=== PATIENT | male | born 1955 | race Caucasian/White ===

== ENCOUNTER → 2020-07-23 | Outpatient (CLI) | payer BC ==
[2020-07-23 12:14] LABS: Potassium 4.4 mmol/L (3.5-5.1)
[2020-07-23 12:46] LABS: HCT 46.9 % (39.0-53.0); HGB 15.8 gm/dL (13.0-17.5); MCH 29.8 pg (25.0-35.0); MCHC 33.7 g/dL (31.0-37.0); MCV 88.4 fL (80.0-100.0); Mean Platelet Volume 6.8; Platelet Count 214 k/uL (150-450); RBC 5.31 m/uL (4.30-5.90); RDW 13.2 % (11.5-15.5); WBC 5.3 k/uL (3.8-10.6)
[2020-07-23 13:24] LABS: Monocytes # (M) 0.32 k/uL (0-1.0); Neutrophils # (M) 3.29 k/uL (1.3-7.7); Neutrophils % (M) 62 %; Nucleated Red Blood Cells 0 /100 WBC (0-0); Total Cells Counted 100
[2020-07-23 13:25] LABS: Anisocytosis (M) Present; Poikilocytosis (M) Present
== END | disposition home or self-care (01) ==
LOC: LABPAT 10:08
PROVIDERS: ATTEND Orthopaedic Surgery
DX: Z01.818 Encounter for other preprocedural examination (principal); M23.91 Unspecified internal derangement of right knee
CPT/HCPCS: 36415; 80051; 85025; 93005

== ENCOUNTER 2020-08-02 06:17 | Day surgery (SDC) | payer BC ==
[2020-07-31 15:01] VITALS: BMI 28.0
--- NOTE | 2020-08-01 09:17 | HP ---
HISTORY AND PHYSICAL CHIEF COMPLAINT: Right knee pain. HISTORY OF PRESENT ILLNESS: The patient is a 64-year-old retired male who presents with right knee pain that began after a previous twisting injury. He notes intermittent pain along with locking and swelling. He notes it bothers him more with weightbearing activities and twisting. He rates it 8/10. He has tried a period of rest in addition to home exercise without much relief. He is unable to have an MRI secondary to previous cochlear implant. PAST MEDICAL HISTORY: Significant for hypercholesterolemia. PAST SURGICAL HISTORY: Significant for cochlear implant placement. CURRENT MEDICATIONS: Cholesterol medicines. ALLERGIES: He denies drug allergies. FAMILY HISTORY: Significant for heart disease. SOCIAL HISTORY: Negative for current tobacco or alcohol use. REVIEW OF SYSTEMS: Sixteen-point review of systems otherwise reviewed and is noncontributory. PHYSICAL EXAMINATION: On examination, the patient is approximately 5 feet 9 inches, 190 pounds of mesomorphic habitus. HEENT exam is nonfocal. Neck is supple. He has painless passive motion of the right hip. Straight leg raise is negative. Active motion right knee -6 to 125 degrees of flexion. He has a trace effusion. He is tender about the medial joint line. Collaterals are stable, Joel is negative, Javi's elicits medial pain. His distal neurovascular exam appears intact in the right lower extremity. IMPRESSION: Right knee internal derangement with probable medial meniscal tear. RECOMMENDATIONS: I talked to the patient at length regarding his condition and treatment options. At this point, he is having significant pain and mechanical symptoms that limit him after a previous twisting injury. After thorough discussion, he opts to proceed with surgery. We will plan to proceed with arthroscopic evaluation with probable partial medial meniscectomy of the right knee. We will likely perform that as an outpatient procedure. Risks and benefits were discussed at length in layman's terms. MMODL / IJN: [id number] /
[~2020-08-02 06:17] MED LIST: DEXAMETHASONE SOD PHOSPHATE 4 MG/ML 1 ML VIAL IV ONE; HYDROmorphone 0.5 MG/0.5 ML SYRINGE IVP PRN; LACTATED RINGERS 1,000 ML IV SCH; LIDOCAINE 1% (10MG/ML) FOR IV START INTRADERMA PRN; MIDAZOLAM 2 MG/2 ML VIAL IV PRN; ONDANSETRON 4 MG/2 ML VIAL IVP ONE
[2020-08-02] MEDS ORDERED: MIDAZOLAM 2 MG/2 ML VIAL ONE (07:28)
[2020-08-02] MEDS ORDERED: LIDOCAINE 1% INJ 10MG/ML (20 ML MDV) ONE (07:28)
[2020-08-02] MEDS ORDERED: fentaNYL (PF) 50 MCG/ML 2 ML AMP ONE (07:28)
[2020-08-02] MEDS ORDERED: KETOROLAC 15 MG/ML 1 ML VIAL ONE (07:28)
[2020-08-02] MEDS ORDERED: PROPOFOL 10 MG/ML 20 ML VIAL IV ONE (07:28)
[2020-08-02 08:24] VITALS: TEMP 97.2
--- NOTE | 2020-08-02 08:26 | P.OP ---
Date of Procedure: 08/02/20 Preoperative Diagnosis: Right knee internal derangement Postoperative Diagnosis: Right knee posterior medial meniscal tear/middle one third lateral meniscal tear Procedure(s) Performed: Right knee arthroscopic partial medial meniscectomy/partial lateral me niscectomy/medial femoral chondrectomy Anesthesia: ALLAN Surgeon: Calixto Salas Estimated Blood Loss (ml): 10 Pathology: none sent Condition: stable Disposition: PACU Indications for Procedure: The patient is a 64-year-old male who presents after an injury with progressive/persistent right knee pain and mechanical symptoms despite conservative treatment. He was unable to obtain an MRI because of a cochlear implant. A discussion of the risks and benefits of operative intervention versus continued conservative measures was made with patient. He opted to proceed with surgery. Operative risks to include infection, neurovascular injury, development of blood clots, possible incomplete resolution of symptoms, possible worsening symptoms and need for subsequent procedures was discussed. Informed consent was obtained. Operative Findings: As below Description of Procedure: The patient was brought to the operating room, and after induction of general anesthesia examined the right knee. Collaterals were stable, Joel was negative, and posterior drawer was negative. The right lower extremity was prepped and draped in a normal fashion. A superior lateral portal was made through a 3 mm skin incision superior and lateral to the patella. This was used for outflow. A lateral portal was made through a 5 mm vertical skin incision lateral to the patella tendon above the joint line. Diagnostic arthroscopy was performed. On inspection of the medial compartment, and oblique tear involving the posterior horn medial meniscus was noted in the white-junction. This was debrided back to stable base with straight baskets and a motorized shaver. There was a grade 2-3 chondral injury involving the central posterior portion of the medial femoral condyle. There was a loose chondral that was debrided back to a stable base with a motorized shaver. On inspection of the notch the anterior cruciate ligament appeared to be intact. On inspection of the lateral compartment, there was a radial tear involving the middle one third of the lateral meniscus in the white-white junction. This was debrided back to stable base with a motorized shaver. On inspection of the patellofemoral articulation there was some chondral fibrillation however no loose chondral fragments. The gutters were clear debris. The knee was then thoroughly irrigated. The portals were closed with Steri-Strips. A sterile dressing was applied in addition to a compression stocking. The patient was awoken from general anesthesia and transferred to recovery room in good condition. Blood loss was estimated at 10 mL. No complications were incurred.
[2020-08-02 08:33] VITALS: RESP 16
[2020-08-02] MEDS ORDERED: HYDROmorphone 0.5 MG/0.5 ML SYRINGE IVP ONE (08:46)
[2020-08-02] MEDS ORDERED: LACTATED RINGERS 1,000 ML IV ONE (09:05)
[2020-08-02] MEDS ORDERED: HYDROcodone/APAP 5-325MG 1 EACH TAB PO ONE (09:23)
[2020-08-02] MEDS ORDERED: HYDROcodone/APAP 5-325MG 1 EACH TAB ONE (09:23)
[2020-08-02 09:29] VITALS: PULSE 55
[2020-08-02 09:53] VITALS: BP 136/78
== END 2020-08-02 10:21 | disposition home or self-care (01) ==
LOC: OR 06:17
PROVIDERS: ATTEND Orthopaedic Surgery
DX: S83.281A Other tear of lateral meniscus, current injury, right knee, initial encounter (principal); S83.241A Other tear of medial meniscus, current injury, right knee, initial encounter; M23.41 Loose body in knee, right knee; X50.1XXA Overexertion from prolonged static or awkward postures, initial encounter; E78.00 Pure hypercholesterolemia, unspecified; E78.5 Hyperlipidemia, unspecified; Z82.49 Family history of ischemic heart disease and other diseases of the circulatory system; Z98.890 Other specified postprocedural states; Z79.899 Other long term (current) drug therapy
CPT/HCPCS: 29880; J2250; J1100; J0690; J2405; J2001; J3010; J1885; J2704; J1170

== ENCOUNTER 2022-10-30 00:14 | Inpatient (IN) | payer BC, MEDICARE ==
[2022-10-30] MEDS ORDERED: SODIUM CHLORIDE 0.9% 1,000 ML IV STA ×2 (00:25→02:46)
[2022-10-30] MEDS ORDERED: ONDANSETRON 4 MG/2 ML VIAL IVP STA (00:34)
[2022-10-30] MEDS ORDERED: MORPHINE SULFATE 4 MG/ML SYRINGE IVP STA ×2 (00:34→03:07)
[2022-10-30] MEDS ORDERED: PANTOPRAZOLE 40 MG/10 ML VIAL IVP STA (00:34)
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
--- NOTE | 2022-10-30 01:34 | XR ---
EXAM: XR Chest, 1 View CLINICAL HISTORY: ITS.REASON XR Reason: abdominal pain TECHNIQUE: Frontal view of the chest. AP upright portable view COMPARISON: No relevant prior studies available. FINDINGS: Lungs: Low lung volumes. Lungs appear clear. Pleural space: Unremarkable. No pneumothorax. Heart: Unremarkable. No cardiomegaly. Mediastinum: Unremarkable. Bones/joints: Unremarkable. IMPRESSION: Low lung volumes. No acute findings in the chest.
--- NOTE | 2022-10-30 01:36 | US ---
EXAM: US Abdomen Limited, Gallbladder CLINICAL HISTORY: ITS.REASON US Reason: abd pain TECHNIQUE: Real-time ultrasound of the right upper quadrant with image documentation. COMPARISON: No relevant prior studies available. FINDINGS: Gallbladder: Negative sonographic Renae sign. No gallstones. No gallbladder wall thickening or pericholecystic fluid. Common bile duct: CBD not well visualized, possibly 3.8 mm. No biliary dilation. Pancreas: Pancreas obscured by bowel gas. Right kidney: 9 x 10 x 8 mm right renal calculus in the inferior pole. No hydronephrosis. IMPRESSION: 9 x 10 x 8 mm right renal calculus in the inferior pole. No hydronephrosis.
[2022-10-30 01:39] LABS: ALT 59 U/L (4-49); AST 47 U/L (17-59); African American GFR (CKD) >90 (>60 ml/min/1.73 sqM); Albumin 4.6 g/dL (3.5-5.0); Alkaline Phosphatase 79 U/L (38-126); Amylase 75 U/L (30-110); Anion Gap 14 mmol/L; Blood Urea Nitrogen 20 mg/dL (9-20); Calcium 9.4 mg/dL (8.4-10.2); Carbon Dioxide 24 mmol/L (22-30); Chloride 101 mmol/L (98-107); Glucose 140 mg/dL (74-99); Lipase 47 U/L (23-300); Non-African American GFR(CKD) 89 (>60 ml/min/1.73 sqM); Partial Thromboplastin Time 23.3 sec (22.0-30.0); Potassium 4.3 mmol/L (3.5-5.1); Prothrombin Time 10.5 sec (9.0-12.0); Sodium 139 mmol/L (137-145); Total Bilirubin 0.7 mg/dL (0.2-1.3); Total Protein 7.3 g/dL (6.3-8.2)
[2022-10-30] MEDS ORDERED: MAG HYDROX/AL HYDROX/SIMETH 30 ML, HYOSCYAMINE ELIXIR 10 ML, LIDOCAINE 2% GLYDO JELLY 1... PO STA ×3 (01:52)
[2022-10-30 02:10] LABS: HCT 44.6 % (39.0-53.0); HGB 15.3 gm/dL (13.0-17.5); MCH 29.2 pg (25.0-35.0); MCHC 34.3 g/dL (31.0-37.0); MCV 85.1 fL (80.0-100.0); Mean Platelet Volume 7.7; Platelet Count 212 k/uL (150-450); RBC 5.25 m/uL (4.30-5.90); RDW 13.5 % (11.5-15.5); WBC 6.3 k/uL (3.8-10.6)
--- NOTE | 2022-10-30 02:35 | CT ---
EXAM: CT Abdomen and Pelvis With Intravenous Contrast CLINICAL HISTORY: ITS.REASON CT Reason: abd pain, nausea and vomiting TECHNIQUE: Axial computed tomography images of the abdomen and pelvis with intravenous contrast. CTDI is 22 mGy and DLP is 1291.1 mGy-cm. This CT exam was performed using one or more of the following dose reduction techniques: automated exposure control, adjustment of the mA and/or kV according to patient size, and/or use of iterative reconstruction technique. COMPARISON: No relevant prior studies available. FINDINGS: Lung bases: Mild bibasilar atelectasis. Mediastinum: Small hiatal hernia with fluid. ABDOMEN: Liver: Unremarkable. No mass. Gallbladder and bile ducts: Unremarkable. No calcified stones. No ductal dilation. Pancreas: Unremarkable. No mass. No ductal dilation. Spleen: Unremarkable. No splenomegaly. Adrenals: Unremarkable. No mass. Kidneys and ureters: Nonobstructing right renal calculus. No hydronephrosis or obstructing calculus. Mild nonspecific perinephric stranding. Stomach and bowel: Multiple dilated small bowel loops with air-fluid levels in the mid abdomen. Distal loops and colon are small caliber. Consistent with small bowel obstruction. Transition point may be in the left upper abdomen where there is fecalization of contents within dilated loops. Also mild mesenteric edema and fluid associated with these loops. Ischemic component not excluded. Distended stomach with fluid and heterogeneous contents. PELVIS: Appendix: No findings to suggest acute appendicitis. Bladder: Unremarkable. No mass. Reproductive: Unremarkable as visualized. ABDOMEN and PELVIS: Intraperitoneal space: Unremarkable. No free air. No significant fluid collection. Bones/joints: No acute fracture. No dislocation. Degenerative changes of the spine. Soft tissues: Unremarkable. Vasculature: Unremarkable. No abdominal aortic aneurysm. Lymph nodes: Unremarkable. No enlarged lymph nodes. IMPRESSION: 1. Small bowel obstruction. Transition point may be in the left upper abdomen. Mild mesenteric edema and fluid associated with these loops in the left upper abdomen. Ischemic component not excluded. 2. Distended stomach with fluid and heterogeneous contents. Small hiatal hernia with fluid. 3. Nonobstructing right renal calculus. <MYCVCSECTION> Communications: 10/30/22 02:39 Verify Receipt Verified receipt with on 10/30 02:38 (-04:00)
[2022-10-30] MEDS ORDERED: LORazepam 2 MG/ML INJ IV STA (02:49)
[2022-10-30 03:06] LABS: Appearance,Urine Clear (Clear); Bilirubin,Urine Negative (Negative); Blood,Urine Negative (Negative); Color,Urine Yellow; Glucose,Urine (UA) Negative (Negative); Ketones,Urine Negative (Negative); Leukocyte Esterase,Urine Negative (Negative); Mucus,Urine Rare /hpf; Nitrite,Urine Negative (Negative); PH, Urine 6.5 (5.0-8.0); Protein,Urine 1+ (Negative); RBC,Urine 5 /hpf (0-5); Specific Gravity,Urine 1.044 (1.001-1.035); Squamous Epithelial Cell,Urine <1 /hpf (0-4); Urobilinogen,Urine <2.0 mg/dL (<2.0); WBC,Urine 2 /hpf (0-5)
[2022-10-30] MEDS ORDERED: METOCLOPRAMIDE 5 MG/ML 2 ML VIAL IVP STA (03:07)
[2022-10-30] MEDS: PIPERACILLIN-TAZOBACTAM 3.375 GM in SODIUM CHLORIDE 0.9% 100 ML IVPB SCH ×3 (03:25→21:11)
[2022-10-30] MEDS ORDERED: NALOXONE 0.4 MG/ML 1 ML VIAL IV PRN (03:30)
[2022-10-30] MEDS ORDERED: MORPHINE SULFATE 4 MG/ML SYRINGE IV PRN (03:30)
[2022-10-30] MEDS ORDERED: ONDANSETRON 4 MG/2 ML VIAL IVP PRN (03:30)
--- NOTE | 2022-10-30 03:43 | XR ---
EXAM: XR Chest, 1 View CLINICAL HISTORY: ITS.REASON XR Reason: ng tube placement confirmation TECHNIQUE: Frontal view of the chest. COMPARISON: XR Chest dated 10/30/22 FINDINGS: Lungs: Mild left basilar atelectasis. Pleural space: Unremarkable. No pneumothorax. Heart: Unremarkable. No cardiomegaly. Mediastinum: Unremarkable. Bones/joints: Unremarkable. Tubes, lines and devices: New NG tube with the tip in the gastric fundus. IMPRESSION: New NG tube with the tip in the gastric fundus.
[2022-10-30 03:44] LABS: Eosinophils # (M) 0.19 k/uL (0-0.7); Lymphocytes # (M) 1.45 k/uL (1.0-4.8); Monocytes # (M) 0.32 k/uL (0-1.0); Neutrophils # (M) 4.35 k/uL (1.3-7.7); Neutrophils % (M) 69 %; Nucleated Red Blood Cells 0 /100 WBC (0-0); Total Cells Counted 100
[2022-10-30] MEDS ORDERED: PANTOPRAZOLE 40 MG/10 ML VIAL IV SCH (09:00)
[2022-10-30] MEDS: ENOXAPARIN 40 MG/0.4 ML SYRINGE SQ SCH (13:08)
[2022-10-30] MEDS ORDERED: HYDROmorphone 1 MG/ML 1 ML SYRINGE IVP PRN (14:47)
[2022-10-30] MEDS ORDERED: HYDROmorphone 0.5 MG/0.5 ML SYRINGE IVP PRN (14:47)
[2022-10-30] MEDS ORDERED: ACETAMINOPHEN IV (For NPO) 1,000 MG in EMPTY BAG 1 BAG IVPB PRN (14:47)
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
[2022-10-30] MEDS ORDERED: BENZOCAINE SPRAY 1 CAN MUCOUS MEM PRN (17:27)
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
[2022-10-30] MEDS ORDERED: DEXTROSE 5%-0.45% NACL 1,000 ML with POTASSIUM CHLORIDE 20 MEQ IV SCH ×2 (18:45)
[2022-10-30] MEDS: FAMOTIDINE 20 MG/2 ML VIAL IV SCH (20:21)
[2022-10-30] MEDS: D5-0.45% NACL WITH KCL 20MEQ/L 1,000 ML IV SCH (21:11)
[2022-10-31] MEDS: D5-0.45% NACL WITH KCL 20MEQ/L 1,000 ML IV SCH ×2 (02:55→21:27)
[2022-10-31] MEDS: PIPERACILLIN-TAZOBACTAM 3.375 GM in SODIUM CHLORIDE 0.9% 100 ML IVPB SCH ×3 (03:20→19:12)
[2022-10-31 07:26] LABS: African American GFR (CKD) 90 (>60 ml/min/1.73 sqM); Anion Gap 8 mmol/L; Blood Urea Nitrogen 13 mg/dL (9-20); Calcium 8.1 mg/dL (8.4-10.2); Carbon Dioxide 26 mmol/L (22-30); Chloride 106 mmol/L (98-107); Glucose 98 mg/dL (74-99); Non-African American GFR(CKD) 78 (>60 ml/min/1.73 sqM); Sodium 140 mmol/L (137-145)
--- NOTE | 2022-10-31 09:13 | P.PN ---
Progress Note - Text Progress Note Date: 10/31/22 Patient states he had flatus overnight. On exam vital signs are stable. Abdomen soft. There is no significant tenderness. Resolving small bowel obstruction. Patient is nasogastric tube removed. He'll start a clear liquid diet.
[2022-10-31] MEDS: ENOXAPARIN 40 MG/0.4 ML SYRINGE SQ SCH (09:27)
[2022-10-31] MEDS: FAMOTIDINE 20 MG/2 ML VIAL IV SCH ×2 (09:27→21:27)
[2022-10-31 10:16] LABS: Basophils # (A) 0.02 X 10*3/uL (0.00-0.10); Basophils % (A) 0.4 %; Eosinophils # (A) 0.23 X 10*3/uL (0.04-0.35); Eosinophils % (A) 4.5 %; HCT 41.7 % (39.6-50.0); HGB 13.5 g/dL (13.0-17.0); Immature Grans, Automated 0.2 %; Lymphocytes # (A) 1.56 X 10*3/uL (0.90-5.00); Lymphocytes % (A) 30.5 %; MCHC 32.4 g/dL (32.0-37.0); MCV 89.5 fL (80.0-97.0); Mean Platelet Volume 9.4 fL (9.5-12.2); Monocytes # (A) 0.51 X 10*3/uL (0.20-1.00); NRBC Per 100 WBC 0 /100 WBCS (0.0-0.0); Neutrophils # (A) 2.78 X 10*3/uL (1.80-7.70); Neutrophils % (A) 54.4 %; Platelet Count 207 X 10*3/uL (140-440); RBC 4.66 X 10*6/uL (4.40-5.60); RDW 13.1 % (11.5-14.5); WBC 5.11 X 10*3/uL (4.50-10.00)
--- NOTE | 2022-10-31 11:11 | XR ---
EXAMINATION TYPE: XR abdomen 2V DATE OF EXAM: 10/31/2022 COMPARISON: CT 10/30/2022 INDICATION: Follow-up obstruction TECHNIQUE: Single view abdomen upright view FINDINGS: Nonspecific bowel gas pattern is present. Air is within the ascending and transverse colon region. Th ere is some nonspecific small bowel gas in the left upper quadrant. No suspicious differential air-fl uid levels are present. Nasogastric tube tip is in the left upper quadrant of the abdomen. Psoas margins are normal. No organomegaly is present. IMPRESSION: 1. Correlate for ileus. Follow-up can be performed as clinically indicated
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
[2022-11-01] MEDS: D5-0.45% NACL WITH KCL 20MEQ/L 1,000 ML IV SCH ×5 (00:09→21:44)
[2022-11-01] MEDS: PIPERACILLIN-TAZOBACTAM 3.375 GM in SODIUM CHLORIDE 0.9% 100 ML IVPB SCH ×3 (04:00→18:38)
[2022-11-01] MEDS: ENOXAPARIN 40 MG/0.4 ML SYRINGE SQ SCH (07:54)
[2022-11-01] MEDS: FAMOTIDINE 20 MG/2 ML VIAL IV SCH ×2 (07:54→20:31)
--- NOTE | 2022-11-01 12:27 | P.PN ---
Progress Note - Text Progress Note Date: 11/01/22 Patient feels better. He has been tolerating his liquid diet. On exam vital signs are stable. Abdomen is soft. Resolving small bowel obstruction. Patient will remain on full liquid diet.
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
[2022-11-01 19:34] VITALS: RESP 18
[2022-11-02] MEDS: PIPERACILLIN-TAZOBACTAM 3.375 GM in SODIUM CHLORIDE 0.9% 100 ML IVPB SCH ×2 (03:12→14:54)
[2022-11-02 05:19] LABS: African American GFR (CKD) 89 (>60 ml/min/1.73 sqM); Anion Gap 8 mmol/L; Blood Urea Nitrogen 8 mg/dL (9-20); Calcium 8.7 mg/dL (8.4-10.2); Carbon Dioxide 27 mmol/L (22-30); Chloride 105 mmol/L (98-107); Glucose 95 mg/dL (74-99); Non-African American GFR(CKD) 77 (>60 ml/min/1.73 sqM); Sodium 140 mmol/L (137-145)
[2022-11-02] MEDS: D5-0.45% NACL WITH KCL 20MEQ/L 1,000 ML IV SCH ×2 (08:51→12:02)
[2022-11-02] MEDS: ENOXAPARIN 40 MG/0.4 ML SYRINGE SQ SCH (12:06)
[2022-11-02] MEDS: FAMOTIDINE 20 MG/2 ML VIAL IV SCH (12:07)
--- NOTE | 2022-11-02 12:25 | FL ---
EXAMINATION TYPE: FL small bowel follow through DATE OF EXAM: 11/02/2022 COMPARISON: None HISTORY: Bloating, bowel obstruction history x4 days, history of diaphragm repair TECHNIQUE: No contrast Gastrografin small bowel follow-through was performed. Overhead radiographs fl uoroscopic observation and fluoroscopic imaging is performed. FINDINGS: Fluoroscopy time: 1 minute 12 seconds. Images: 9 fluoroscopic and overhead radiographs. DLP: Not recorded Small bowel fills normally with Gastrografin. Transit time: 1 hour. Small hiatal hernia is present. Fundus body and antrum of stomach is visualized is unremarkable. Prox imal small bowel loops and distal ileal fold pattern appears normal. Under real-time observation the small bowel loops appear freely mobile. Appendix is not identified. There is the terminal ileum is unremarkable. No zone of transition is identified. IMPRESSION: 1. No suspicious changes to suggest small bowel obstruction. Gastrografin extends into the colon wit hin one hour.
[2022-11-02 13:44] VITALS: BP 127/71; PULSE 64; TEMP 97.5
--- NOTE | 2022-11-02 15:16 | P.DS ---
Providers Date of admission: 10/30/22 03:31 Expected date of discharge: 11/02/22 Attending physician: Elio Vanessa Consults: 10/30/22 14:47 Consult Physician Routine Consulting Provider: Deion Peters Consult Reason/Comments: Medical management Do you want consulting provider notified?: Yes Primary care physician: Fabiola Munroe - Discharge Diagnosis(es) (1) Small bowel obstruction 67-year-old male hospitalized with abdominal pain and CAT scan findings consistent with small bowel obstruction. Patient had a nasogastric tube placed. His symptoms improved. He had return of bowel function. He was started on liquid diet which he tolerated. Today the patient had a small bowel series which shows no evidence of residual obstruction. Will advance diet and planned discharge. Follow-up with primary post discharge. Current Visit: Yes Status: Acute Patient Condition at Discharge: Stable Plan - Discharge Summary Discharge Rx Participant: Yes New Discharge Prescriptions: No Action Atorvastatin [Lipitor] 40 mg PO DAILY Aspirin EC [Ecotrin Low Dose] 81 mg PO DAILY Multivit-Min/FA/Lycopen/Lutein [Centrum Silver Men Tablet] 1 tab PO DAILY Cholecalciferol [Vitamin D3 (25 Mcg = 1000 Iu)] 25 mcg PO DAILY Discharge Medication List Atorvastatin [Lipitor] 40 mg PO DAILY 07/31/20 [History] Aspirin EC [Ecotrin Low Dose] 81 mg PO DAILY 10/30/22 [History] Cholecalciferol [Vitamin D3 (25 Mcg = 1000 Iu)] 25 mcg PO DAILY 10/30/22 [History] Multivit-Min/FA/Lycopen/Lutein [Centrum Silver Men Tablet] 1 tab PO DAILY 10/30/22 [History] Follow up Appointment(s)/Referral(s): Fabiola Munroe MD [Primary Care Provider] - 1-2 days
== END 2022-11-02 16:01 | disposition home or self-care (01) | DRG 390 ==
LOC: EC 00:14 → 4SSUR 03:31
PROVIDERS: ADMIT Surgery; ATTEND Surgery
PROC: 0D9670Z Drainage of Stomach with Drainage Device, Via Natural or Artificial Opening (ICD-10-PCS; principal; 2022-10-30)
DX: K56.50 Intestinal adhesions [bands], unspecified as to partial versus complete obstruction (principal); E78.5 Hyperlipidemia, unspecified; H91.91 Unspecified hearing loss, right ear; I45.10 Unspecified right bundle-branch block; R00.1 Bradycardia, unspecified; M19.91 Primary osteoarthritis, unspecified site; N20.0 Calculus of kidney; K44.9 Diaphragmatic hernia without obstruction or gangrene; Z79.82 Long term (current) use of aspirin; Z79.899 Other long term (current) drug therapy; Z96.21 Cochlear implant status
CPT/HCPCS: 36415; 43753; 71045; 74019; 74177; 74250; 76705; 80048; 80053; 81001; 82150; 83605; 83690; 85025; 85610; 85730; 93005; 96361; 96365; 96366; 96375; 99285

== ENCOUNTER 2024-05-31 09:37 | Day surgery (SDC) | payer MEDICARE ==
[2024-05-31 10:39] VITALS: TEMP 97
[2024-05-31] MEDS: IV FLUID CONTINUATION 1,000 ML IV ONE (10:39)
[2024-05-31] MEDS: LACTATED RINGERS 1,000 ML IV SCH (10:41)
[2024-05-31] MEDS ORDERED: PROPOFOL 10 MG/ML 20 ML VIAL IV ONE (11:52)
--- NOTE | 2024-05-31 12:10 | P.PCN ---
Date of Procedure: 05/31/24 Procedure(s) Performed: BRIEF HISTORY: Patient is a 68-year-old pleasant white male scheduled for an elective colonoscopy as a part of screening for colon cancer. PROCEDURE PERFORMED: Colonoscopy. PREOPERATIVE DIAGNOSIS: Screening for colon cancer. IV sedation per Anesthesia. PROCEDURE: After informed consent was obtained, the patient, was brought into the endoscopy unit. IV sedation was administered by Anesthesia under continuous monitoring. Digital rectal examination was normal. Initially the Olympus CF-160 flexible video colonoscope was then inserted in the rectum, gradually advanced into the cecum with moderate difficulty. Careful examination was performed as the scope was gradually being withdrawn. Ileocecal valve and the appendiceal orifice were visualized and appeared normal. Prep was excellent. Mucosa of the cecum, ascending colon, transverse colon, descending colon, sigmoid colon, and rectum appeared normal. Retroflexion was performed in the rectum and small internal were seen. The patient tolerated the procedure well. IMPRESSION: Normal-appearing colon from rectum to cecum no evidence of colorectal neoplasia. Small internal hemorrhoids. RECOMMENDATIONS: Findings of this examination were discussed with the patient as well as his family. He was advised to have repeat screening colonoscopy in 10 years..
[2024-05-31 12:37] VITALS: BP 142/77; PULSE 71; RESP 16
== END 2024-05-31 12:49 | disposition home or self-care (01) ==
LOC: ORWHC2ENDO 09:37
PROVIDERS: ATTEND Internal Medicine Gastroenterology
DX: Z12.11 Encounter for screening for malignant neoplasm of colon (principal); K64.8 Other hemorrhoids; E78.5 Hyperlipidemia, unspecified; H91.90 Unspecified hearing loss, unspecified ear; Z89.522 Acquired absence of left knee; Z89.521 Acquired absence of right knee; Z79.82 Long term (current) use of aspirin; Z79.02 Long term (current) use of antithrombotics/antiplatelets; Z79.899 Other long term (current) drug therapy
CPT/HCPCS: J2704; G0121